=== PATIENT | female | born 1965 | race Caucasian/White ===

== ENCOUNTER 2022-10-04 09:46 | Outpatient (CLI) | payer OTHER, SELFPAY ==
[2022-10-04 13:57] LABS: Albumin* 4.6 g/dL (3.3-5.0); Chloride* 102 mmol/L (96-114)
[2022-10-04 13:58] LABS: Potassium* 4.4 mmol/L (3.6-5.1); Sodium* 141 mmol/L (135-149)
[2022-10-04 14:00] LABS: Bilirubin Total* 0.6 mg/dL (0.1-1.5); Carbon Dioxide* 30 mmol/L (20-32); Cholesterol* 208 mg/dL (90-199); Creatinine* 0.7 mg/dL (0.5-1.5); Estimated Glomerular Filt Rate 101 ml/min; Total Protein* 7.1 g/dL (6.0-8.3)
[2022-10-04 14:01] LABS: Alanine Aminotransferase* 27 U/L (4-35); Alkaline Phosphatase* 65 U/L (40-150); Aspartate Amino Transferase* 31 U/L (12-35); Blood Urea Nitrogen* 11 mg/dL (7-30); Calcium* 9.6 mg/dL (8.4-10.6); Glucose* 87 mg/dL (60-115); HDL Cholesterol* 79 mg/dL (>=50); LDL Cholesterol Calculated 106 mg/dL (<100); Triglycerides* 117 mg/dL (40-149)
== END 2022-10-04 09:47 | disposition home or self-care (01) ==
PROVIDERS: PCP Physician Assistant Medical; Visit Provider Family Medicine
DX: Z01.419 Encounter for gynecological examination (general) (routine) without abnormal findings (principal); G43.909 Migraine, unspecified, not intractable, without status migrainosus; Z12.4 Encounter for screening for malignant neoplasm of cervix; Z13.6 Encounter for screening for cardiovascular disorders
CPT/HCPCS: 80053; 80061; 87624; 88175

== ENCOUNTER 2022-11-14 09:45 | Outpatient (RCR) | payer OTHER, SELFPAY | END 2023-01-08 16:21 | disposition home or self-care (01) | PROVIDERS: PCP Physician Assistant Medical; Visit Provider Family Medicine | DX: M54.2 Cervicalgia (principal); Z51.89 Encounter for other specified aftercare | CPT/HCPCS: 97110; 97140; 97161 ==

== ENCOUNTER 2023-01-07 08:57 | Outpatient (CLI) | payer OTHER, SELFPAY ==
--- NOTE | 2023-01-07 09:15 | CRLHL7_ITS ---
For Patients: As a result of the Century Cures Act, medical imaging exams and procedure reports are released immediately into your electronic medical record. You may view this report before your referring provider. If you have questions, please contact your health care provider. BILATERAL SCREENING MAMMOGRAM WITH COMPUTER-AIDED DETECTION AND TOMOSYNTHESIS TECHNIQUE: CC and MLO views were obtained. These mammographic images have been obtained using full-field digital technique. These mammographic images were interpreted with the benefit of computer-aided detection. Breast Tomosynthesis was used in this interpretation. COMPARISON FILM: 07/20/19, 06/06/18, 03/23/16. FINDINGS: The breasts are heterogeneously dense, which may obscure small masses IMPRESSION: There is no radiographic evidence for malignancy. ASSESSMENT: BI-RADS Category 1: Negative RECOMMENDATION: Routine screening mammogram in 1 year. A lay language report of this examination will be provided to the patient. Richy Sexton M.D. Diagnostic Radiologist [email or web address] REAGAN/priya Transcribed: 2:51 p.pedro powers/Dictated by: Richy Sexton MD @ 01/07/2023 12:47:00 PM (Electronically Signed)
== END 2023-01-07 08:58 | disposition home or self-care (01) ==
LOC: MAMMO 08:58
PROVIDERS: PCP Physician Assistant Medical; Visit Provider Family Medicine
DX: Z12.31 Encounter for screening mammogram for malignant neoplasm of breast (principal); R92.2 Inconclusive mammogram
CPT/HCPCS: 77063; 77067

== ENCOUNTER 2023-05-21 08:04 | Outpatient (CLI) | payer OTHER, SELFPAY ==
--- NOTE | 2023-05-21 08:15 | CRLHL7_ITS ---
For Patients: As a result of the Century Cures Act, medical imaging exams and procedure reports are released immediately into your electronic medical record. You may view this report before your referring provider. If you have questions, please contact your health care provider. INDICATION: Palpable tender mass posterior to the right knee. Possible Masters`s cyst. TECHNIQUE: Directed soft tissue ultrasound of the right popliteal fossa. FINDINGS: There is a well-circumscribed 3.0 x 1.4 x 2.0 cm oval-shaped hypoechoic mass which appears to contain fluid and proteinaceous debris or hemorrhage. This is nonvascular. A complex Masters cyst is considered most likely. A seroma or resolving hematoma are in the differential. IMPRESSION: Well-circumscribed hypoechoic nonvascular mass posterior to the right knee likely a complex Masters`s cyst, or perhaps a seroma/hematoma. Dictated by Javier Paez MD @ 05/21/2023 9:11:21 AM (Electronically Signed)
== END 2023-05-21 08:05 | disposition home or self-care (01) ==
LOC: US 08:05
PROVIDERS: PCP Physician Assistant Medical; Visit Provider Physician Assistant Medical
DX: M79.89 Other specified soft tissue disorders (principal); M71.21 Synovial cyst of popliteal space [Baker], right knee
CPT/HCPCS: 76882

== ENCOUNTER 2024-03-16 07:33 | Outpatient (CLI) | payer OTHER, SELFPAY ==
--- NOTE | 2024-03-16 07:45 | MM_ITS ---
Patient: BLAKE GREGORIO Facility:?[facility] Patient ID:?[id number] Site Patient ID:?[id number] Site :?[id number] Study:?XRay-Breast Bilateral 3D W/CAD-03/16/2024 8:01:12 AM Ordering Physician:Tonio Final Report: BILATERAL SCREENING MAMMOGRAM WITH COMPUTER-AIDED DETECTION AND TOMOSYNTHESIS TECHNIQUE: CC and MLO views were obtained. These mammographic images have been obtained using full-field digital technique. These mammographic images were interpreted with the benefit of computer-aided detection. Breast Tomosynthesis was used in this interpretation. COMPARISON FILM: 01/07/23, 07/20/19, 06/06/18. FINDINGS: The breasts are heterogeneously dense, which may obscure small masses. IMPRESSION: There is no radiographic evidence for malignancy. ASSESSMENT: BI-RADS Category 1: Negative RECOMMENDATION: Routine screening mammogram in 1 year. A lay language report of this examination will be provided to the patient. Richy Sexton M.D. Diagnostic Radiologist [email or web address] REAGAN/sp R& Transcribed: 3:08 p.m. SP/Dictated by: iRchy Sexton MD @ 03/16/2024 8:54:00 AM Signed by:?Richy Sexton MD @03/16/2024 3:18:24 PM (Electronic Signature)
== END 2024-03-16 07:34 | disposition home or self-care (01) ==
LOC: MAMMO 07:34
PROVIDERS: PCP Physician Assistant Medical; Visit Provider Physician Assistant Medical
DX: Z12.31 Encounter for screening mammogram for malignant neoplasm of breast (principal); R92.2 Inconclusive mammogram
CPT/HCPCS: 77063; 77067